=== PATIENT | male | born 1965 | race Caucasian/White ===

== ENCOUNTER 2021-05-31 14:05 | Emergency (ER) | payer OTHER, SELFPAY ==
--- NOTE | ~2021-05-31 | XR_ITS ---
EXAMINATION: XR hand LT min 3V DATE: 05/31/2021 14:28 INDICATION: Laceration to the left hand second-fourth digits. TECHNIQUE: 3 views of left hand were obtained. COMPARISON: None. FINDINGS: Bone alignment is normal. There is a nondisplaced fracture of tuft of second distal phalanx . There is mild osteoarthritis of first carpometacarpal joint, third metacarpophalangeal joint, and s ome of the interphalangeal joints. There are lacerations of the distal second, third, and fourth digi ts. IMPRESSION: 1. Nondisplaced fracture of tuft of second distal phalanx. Reviewed, dictated and finalized at location B. [employer]
[2021-05-31 14:09] VITALS: BP 160/90; PULSE 75; RESP 18; TEMP 36.8; O2SAT 98
[2021-05-31] MEDS: LIDOCAINE, EPINEPHRINE, TETRACAINE VISCOUS SOLN 3 ML TOPICAL (14:47)
[2021-05-31] MEDS: TETANUS,DIPHTHERIA,AC PERTUSSIS ADULT (0.5 ML) BOOSTRIX IM (14:57)
--- NOTE | 2021-05-31 16:43 | ED.GENADULT ---
HPI - General Adult General Chief complaint: Wound/Laceration Stated complaint: Finger lac Time Seen by Provider: 05/31/21 14:14 Source: patient and RN notes reviewed Mode of arrival: ambulatory Limitations: no limitations History of Present Illness HPI narrative: Patient is a 55-year-old male who presents to emergency department for evaluation of injuries to the finger second third fourth of the left hand patient was using a carpentry tool when he sustained the injuries the injuries are to the distal phalanxes he notes his tetanus is not up-to-date notes mild aching pain injury occurred just prior to arrival Related Data Allergies Allergy/AdvReac Type Severity Reaction Status Date / Time No Known Allergies Allergy Mild Unverified 02/01/15 11:17 Review of Systems Review of Systems: All systems reviewed & are unremarkable except as noted in HPI and below PMFSH Social History Social History (Updated 05/31/21 @ 16:44 by Zain Quintanilla PA-C) Smoking status: Never smoker Exam Narrative: GENERAL: Well-appearing, well-nourished, and in no acute distress. HEAD: Normocephalic, atraumatic. EYES: PERRLA and EOMI. ENT: Nares clear, no rhinorrhea or epistaxis. Mucous membranes moist. EXTREMITIES: Normal range of motion. No edema. Patient with 1 cm irregular laceration of the distal phalanx of the left second third and fourth distal phalanxes that are superficial in nature. SKIN: Warm, dry, no rash. NEURO: No focal deficits. Alert and oriented x3. Neurovascularly intact. Capillary refill less than 2-second PSYCH: Normal mood and affect. Course Course Emergency Course: Patient in the room nondistressed aware of case findings treatment plan and diagnosis agreed to follow-up as instructed he had wound closure in the emergency department he was given tetanus update he presents afebrile nontoxic-appearing nondistressed will be discharged with outpatient follow-up put on antibiotics given the tuft fracture Vital Signs Vital signs: Vital Signs Temperature 98.2 F 05/31/21 14:09 Pulse Rate 75 05/31/21 14:09 Respiratory Rate 18 05/31/21 14:09 Blood Pressure 160/90 H 05/31/21 14:09 Pulse Oximetry 98 05/31/21 14:09 Temperature 98.2 F 05/31/21 14:09 Pulse Rate 75 05/31/21 14:09 Respiratory Rate 18 05/31/21 14:09 Blood Pressure 160/90 H 05/31/21 14:09 Pulse Oximetry 98 05/31/21 14:09 Procedures Laceration Laceration 1: Date: 05/31/21 Time: 16:46 Site: upper extremity Side (If applicable): left Size (cm): 1 Description: irregular Depth: simple, single layer Local Anesthetic: lidocaine 1% Pre-repair: wound explored, irrigated and irrigated extensively ====== Skin Level ====== Skin layer closed with: nylon Size (cm): 4-0 Number of sutures: 2 Technique: simple, interrupted ====== Subcutaneous Layer ====== ====== Muscle Layer ====== ====== Tendon Layer ====== Laceration 2: Date: 05/31/21 Time: 16:46 Site: upper extremity Side (If applicable): left Size (cm): 1 Description: irregular Depth: simple, single layer Local Anesthetic: lidocaine 1% Pre-repair: wound explored, irrigated, irrigated extensively and minor debridement ====== Skin Level ====== Skin layer closed with: nylon Size (cm): 4-0 Number of sutures: 2 ====== Subcutaneous Layer ====== ====== Muscle Layer ====== ====== Tendon Layer ====== Laceration 3: Date: 05/31/21 Time: 16:51 Site: upper extremity Side (If applicable): left Size (cm): 2 Description: irregular Depth: simple, single layer Local Anesthetic: lidocaine 1% Pre-repair: wound explored, irrigated and irrigated extensively ====== Skin Level ====== Skin layer closed with: nylon Size (cm): 4-
[2021-05-31 17:04] VITALS: BP 138/72; PULSE 62; RESP 18; O2SAT 99
== END 2021-05-31 17:07 | disposition home or self-care (01) ==
PROVIDERS: Emergency Provider Emergency Medicine
DX: S62.661A Nondisplaced fracture of distal phalanx of left index finger, initial encounter for closed fracture (principal); S61.211A Laceration without foreign body of left index finger without damage to nail, initial encounter; S61.213A Laceration without foreign body of left middle finger without damage to nail, initial encounter; S61.215A Laceration without foreign body of left ring finger without damage to nail, initial encounter; Z23 Encounter for immunization; W27.8XXA Contact with other nonpowered hand tool, initial encounter
CPT/HCPCS: 12002; 73130; 90471; 90715; 99283